=== PATIENT | male | born 1935 | race Two or more races ===

== ENCOUNTER 2021-01-02 11:47 | Day surgery (SDC) | payer OTHER ==
[~2021-01-02] VITALS: Ht 177.8 cm; Wt 92.1 kg
[~2021-01-02 11:47] MED LIST: AMLO5 PO; ASPI81CH PO; ATOR20 PO; B-122500 MC1 PO; CLOP75 PO; Depo-Testo100 MG/1 M IM; FISH OIL 1,0001 EAC1 PO; FISH1000 PO; FURO20; Furosemide20 MG PO; GLUCHON PO; GLUCOSAMINE-CH1 EA12; HYDR-86 PO; LEVSOD88 PO; LOSA50 PO; LOSHYD PO; MAGOXI400 PO; MELA3 PO; METO25ER PO; MULVITA PO; Multivitamin1 EAC1 PO; NIAC500 PO; Norco 7.5-3251 EACH PO; OXYACE7.5T; OXYACE7.5T PO; PROM25 PO; ROXICODONE5 MG PO; STOOL SOFTENER100 MG PO; TRAM50 PO; UBID100 PO; VITAMIN D5000 UNIT PO; Vitamin B-121000 MCG PO
--- NOTE | 2021-01-02 13:09 | NUR ---
Ambulatory in Day Surgery History, Chart, Medications and Allergies reviewed before start of procedure.Patient confirms NPO status and agrees with scheduled surgery. Pre-Op teaching done. Pt verbalizes understanding. Lungs clear T/O to Auscultation.
[2021-01-03 05:11] LABS: BASOPHILS ABSOLUTE AUTO 0.03 K/mm3 (0.00-0.23); BASOPHILS PERCENT AUTO 0 % (0-2); EOSINOPHILS ABSOLUTE AUTO 0.28 K/mm3 (0.00-0.68); EOSINOPHILS PERCENT AUTO 3 % (0-6); Hematocrit 43.6 % (37.0-53.0); Hemoglobin 14.6 g/dL (13.5-17.5); IMMATURE GRAN ABSOLUTE AUTO 0.04 K/mm3 (0.00-0.10); IMMATURE GRAN PERCENT AUTO 0 % (0-1); LYMPHOCYTES ABSOLUTE AUTO 1.92 K/mm3 (0.84-5.20); LYMPHOCYTES PERCENT AUTO 19 % (21-46); MONOCYTES PERCENT AUTO 11 % (4-13); Mean Corpuscular HGB 30.2 pg (26.0-34.0); Mean Corpuscular HGB Conc 33.5 g/dL (31.5-36.5); Mean Corpuscular Volume 90 fL (80-100); Mean Platelet Volume 10.5 fL (9.1-12.4); NEUTROPHILS ABSOLUTE AUTO 6.58 K/mm3 (1.96-9.15); NEUTROPHILS PERCENT AUTO 66 % (41-73); Platelet Count 167 K/mm3 (150-400); RDW Coefficient Variation 14.3 % (11.7-14.2); RDW Standard Deviation 47.5 fL (35.1-46.3); Red Blood Cell Count 4.84 M/mm3 (4.30-5.90); White Blood Cell Count 9.95 K/mm3 (4.00-11.30)
[2021-01-03 05:34] LABS: Anion Gap 4 mmol/L (6-16); Blood Urea Nitrogen 15 mg/dL (8-24); Bun/Creatinine Ratio 12.4 (12.0-20.0); CO2, Blood 28 mmol/L (21-32); Calcium, Blood 8.1 mg/dL (8.5-10.1); Chloride, Blood 104 mmol/L (98-108); Creatinine, Blood 1.21 mg/dL (0.60-1.20); Glomerular Filtration Rate >60 (60-); Glucose, Blood 92 mg/dL (70-99); Sodium, Blood 136 mmol/L (136-145)
--- NOTE | 2021-01-03 05:51 | NUR ---
SHIFT SUMMARY LYING IN SEMI FOWLERS WITH EYES CLOSED. NO SIGNIFICANT CHANGES NOTED THIS SHIFT. PT AMBULATED TO BATHROOM WITH 1 PERSON ASSIST USING FWW/GB. RLE WITH GOOD DISTAL PULSES AND CAP REFILL. POLAR KARINA, CATA'S, AND SCD'S IN PLACE. DENIES PAIN, DISCOMFORT, OR FURTHER NEEDS AT THIS TIME. SAFETY MEASURES IN PLACE. WILL CONTINUE TO MONITOR AND GIVE HAND OFF TO ONCOMING SHIFT USING SBAR DURING BEDSIDE REPORT.
[2021-01-03] MEDS ORDERED: PROM25 PO (14:32)
[2021-01-03] MEDS ORDERED: OXYC5 PO (14:32)
[2021-01-03] MEDS ORDERED: SULTRIDS PO (14:33)
--- NOTE | 2021-01-03 15:07 | NUR ---
DISCHARGE PT DISCHARGED HOME WITH HIS DAUGHTER AT APPROXIMATELY 1450. PT AND HIS DAUGHTER PROVIDED WITH WRITTEN AND VERBAL DISCHARGE INSTRUCTIONS, THEY REPORTED UNDERSTANDING. PT WAS ABLE TO VOID BEFORE DISCHARGE. HE REPORTED ADQUEATE VOID WITH STRONG URINE STREAM. PVR WAS 79ML. PT EDUCATED TO MONITOR FOR BLADDER DISCOMFORT/INABILITY TO VOID. PT EDUCATED TO NOTIFY MD IF FURTHER ISSUES VOIDING. PT PROVIDED WITH DRESSINGS. PT ESCORTED OUT IN W/C. VSS PRIOR TO DISCHARGE.
[2021-01-09] MEDS ORDERED: Keflex500 MG PO (17:52)
[2021-01-09] MEDS ORDERED: Vibramycin100 MG PO (17:52)
== END 2021-01-03 14:54 | disposition home or self-care (01) ==
LOC: SURS 11:47 → ORSCMMR 11:47 → SURS 17:15 → ORSCMMR 01-03 14:54
PROVIDERS: Orthopaedic Surgery
PROC: 8E0YXBZ Computer Assisted Procedure of Lower Extremity (ICD-10-PCS; principal; 2021-01-02 14:00)
PROC: 0SRC0J9 Replacement of Right Knee Joint with Synthetic Substitute, Cemented, Open Approach (ICD-10-PCS; principal; 2021-01-02 14:00)
DX: M17.11 Unilateral primary osteoarthritis, right knee (principal); I10 Essential (primary) hypertension; E78.5 Hyperlipidemia, unspecified; I25.10 Atherosclerotic heart disease of native coronary artery without angina pectoris; E03.9 Hypothyroidism, unspecified; Z79.899 Other long term (current) drug therapy; Z79.82 Long term (current) use of aspirin
CPT/HCPCS: 36415; 73560-RT; 80048; 83735; 85025; 97110; 97116; 97162; 97530; A9270; C1713; C1776; J0171; J0690; J0735; J1885; J2370; J2704; J2795; J3010; J3370; J7120

== ENCOUNTER 2021-01-09 13:32 | Emergency (ER) | payer OTHER ==
[~2021-01-09] VITALS: Ht 177.8 cm; Wt 90.7 kg
== END 2021-01-09 18:35 | disposition home or self-care (01) ==
LOC: ER 13:32
DX: L03.115 Cellulitis of right lower limb (principal); L76.82 Other postprocedural complications of skin and subcutaneous tissue; Z79.899 Other long term (current) drug therapy; Z87.19 Personal history of other diseases of the digestive system; Z87.891 Personal history of nicotine dependence
CPT/HCPCS: 20610; 36415; 73562-RT; 80053; 82272; 83605; 83615; 84157; 85025; 85651; 86140; 86850; 86900; 86901; 87040; 87070; 87075; 87205; 89051; 89060; 93005; 93010; 99284-25; A9270; J0692

== ENCOUNTER 2021-01-10 09:11 | Inpatient (IN) | payer OTHER ==
[~2021-01-10] VITALS: Ht 177.8 cm; Wt 90.5 kg
[~2021-01-10 09:11] MED LIST changes: +Keflex500 MG PO; +OXYC5 PO; +SULTRIDS PO; +Vibramycin100 MG PO
--- NOTE | 2021-01-10 10:05 | NUR ---
INTO SDS ADMISSION STARTED TO UNIT
[2021-01-10 13:07] LABS: BODY FLUID RBC 1.164 M/mm3 (0-0); RBC Count, Synovial Fluid 1164000 /mm3 (0-0)
[2021-01-10 13:32] LABS: WBC Count, Synovial Fluid 8472 /mm3 (0-180)
[2021-01-10 13:41] LABS: BODY FLUID RBC 0.002 M/mm3 (0-0); WBC Count, Synovial Fluid 521 /mm3 (0-180)
[2021-01-10 13:45] LABS: BODY FLUID RBC 1.167 M/mm3 (0-0); RBC Count, Synovial Fluid 1167000 /mm3 (0-0)
[2021-01-10 14:00] LABS: WBC Count, Synovial Fluid 7770 /mm3 (0-180)
[2021-01-10 14:08] LABS: Appearance, Synovial Fluid Bloody (Clear); Color, Synovial Fluid Red (None-P Yel); Lymphs, Synovial Fluid 4 % (0-15); Monocytes/Macrophages, Synovia 6 % (0-65); Neutrophils, Synovial Fluid 90 % (0-24)
[2021-01-10 14:30] LABS: Appearance, Synovial Fluid Bloody (Clear); Color, Synovial Fluid Red (None-P Yel); Eos, Synovial Fluid 1 % (0-2); Lymphs, Synovial Fluid 12 % (0-15); Monocytes/Macrophages, Synovia 14 % (0-65); Neutrophils, Synovial Fluid 73 % (0-24)
[2021-01-10 14:32] LABS: Appearance, Synovial Fluid Bloody (Clear); Color, Synovial Fluid Red (None-P Yel); Lymphs, Synovial Fluid 1 % (0-15); Monocytes/Macrophages, Synovia 5 % (0-65); Neutrophils, Synovial Fluid 94 % (0-24)
--- NOTE | 2021-01-10 18:42 | NUR ---
SHIFT SUMMARY PATIENT POST OP TODAY FOR IRRIGATION AND DEBRIDEMENT OF THE R KNEE. A/O X4 AND GETS UP WITH A 1 ASSIST WITH A FWW/GB. PT IS TOLERATING PO INTAKE AND URINATING. MEDICATED FOR PAIN X3 THIS SHIFT. VSS.
--- NOTE | 2021-01-10 19:13 | NUR ---
RECEIVED REPORT AND ASSUMED CARE. PT LYING QUIETLY IN RECLINER WITH EYES CLOSED AND EVEN, UNLABORED RESPIRATIONS.
--- NOTE | 2021-01-10 20:37 | NUR ---
DURING ASSESSMENT PT REPORTED THAT HE HAD NOT PRODUCED URINE ALL DAY. HE ATTEMPTED TO VOID AND WAS UNABLE. BLADDER SCAN PER ORDER REVEALED 769. ON-CALL PHYSICIAN CONTACTED AND ORDER RECEIVED TO STRAIGHT CATH AND REPEAT IN 4 HOURS.
--- NOTE | 2021-01-11 04:15 | NUR ---
SHIFT SUMMARY: DANELLE IS A&OX4, ONE PERSON ASSIST W/ GAIT BELT AND FWW. VSS, NO ACUTE EVENTS OVERNIGHT. HE REPORTS MINIMAL PAIN CONTROL WITH THE DILAUDID, TORADOL, AND 5 MG OF OXYCODONE. HE IS TOLERATING PO INTAKE WELL, USES THE CALL LIGHT APPROPRIATELY, AND HAS URINATED INDEPENDENTLY ONCE. HE WAS ENCOURAGED TO ATTEMPT URINATION AGAIN AND EDUCATED ON BLADDER SCANNING. JANA WRAP TO R KNEE C/D&I, HEMOVAC PATENT DRAINING SEROUS FLUID. IV PATENT. HE IS LYING IN BED WITH HIS CALL LIGHT IN REACH. WILL REPORT TO DAY SHIFT RN.
[2021-01-11 04:31] LABS: BASOPHILS ABSOLUTE AUTO 0.05 K/mm3 (0.00-0.23); BASOPHILS PERCENT AUTO 1 % (0-2); EOSINOPHILS ABSOLUTE AUTO 0.41 K/mm3 (0.00-0.68); EOSINOPHILS PERCENT AUTO 5 % (0-6); Hematocrit 34.7 % (37.0-53.0); Hemoglobin 11.2 g/dL (13.5-17.5); IMMATURE GRAN ABSOLUTE AUTO 0.08 K/mm3 (0.00-0.10); IMMATURE GRAN PERCENT AUTO 1 % (0-1); LYMPHOCYTES ABSOLUTE AUTO 1.29 K/mm3 (0.84-5.20); LYMPHOCYTES PERCENT AUTO 15 % (21-46); MONOCYTES ABSOLUTE AUTO 1.02 K/mm3 (0.16-1.47); MONOCYTES PERCENT AUTO 12 % (4-13); Mean Corpuscular HGB 29.9 pg (26.0-34.0); Mean Corpuscular HGB Conc 32.3 g/dL (31.5-36.5); Mean Corpuscular Volume 93 fL (80-100); Mean Platelet Volume 10.8 fL (9.1-12.4); NEUTROPHILS ABSOLUTE AUTO 5.53 K/mm3 (1.96-9.15); NEUTROPHILS PERCENT AUTO 66 % (41-73); Platelet Count 279 K/mm3 (150-400); RDW Coefficient Variation 14.3 % (11.7-14.2); RDW Standard Deviation 48.7 fL (35.1-46.3); Red Blood Cell Count 3.75 M/mm3 (4.30-5.90); White Blood Cell Count 8.38 K/mm3 (4.00-11.30)
[2021-01-11 04:57] LABS: Bun/Creatinine Ratio 17.5 (12.0-20.0); C-REACTIVE PROTEIN, EXT RANGE 10.7 mg/dL (0.000-0.300); Creatinine, Blood 1.37 mg/dL (0.60-1.20); Magnesium, Blood 2.2 mg/dL (1.6-2.4); Potassium, Blood 4.1 mmol/L (3.5-5.5)
--- NOTE | 2021-01-11 17:54 | NUR ---
SHIFT SUMMARY PT SPENT MOST OF THE DAY UP IN HIS RECLINER. PT AMBULATED THE HALLWAY WITH PHYSICAL THERAPY TODAY & AMBULATED TO THE BATHROOM & BACK 2 OTHER TIMES TODAY. PT AGREEABLE FOR ANOTHER WALK AFTER DINNER TODAY. SEE EMAR FOR PAIN CO FOUNDER AND CTO. ICE PACKS ALSO UTILIZED FOR PAIN RELIEF OF THE R KNEE. DR. GU CHANGED PTS DRESSING THIS AM. PLAN TO PLACE PICC FOR OUTPT ABX SOMETIME OVER THE WEEKEND. NO ACUTE CHANGES IN ASSESSMENT AT THIS TIME. VS REVIEWED. PT UP IN RECLINER, EATING DINNER.
--- NOTE | 2021-01-12 06:42 | NUR ---
SUMMARY PT AMBULATES WITH WALKER,GAIT BELT AND SBA. VOIDS AND REPORTS PAIN MEDS EFFECTIVE.DISCHARGE PENDING,BUT DAY RN REPORTED PT IS UNABLE TO RECEIVE ANTIBIOTICS AT HIS HOME UNTIL THURSDAY.
[2021-01-12 11:28] LABS: Creatinine, Blood 1.08 mg/dL (0.60-1.20); Vancomycin, Trough 10.3 ug/mL (5.0-10.0)
--- NOTE | 2021-01-12 17:08 | NUR ---
SUMMARY NO ACUTE CHANGES T/O SHIFT. PT AMBULATES TO RESTROOM. SAT UP IN CHAIR MOST OF SHIFT. DR HARRY DC'Kevin HEMOVAC THIS SHIFT AND CHANGED DRESSING TO RLE. MEDICATED PT TWICE DURING SHIFT PER ORDERS FOR PAIN. CALL LIGHT IN REACH.
--- NOTE | 2021-01-13 05:32 | NUR ---
SHIFT SUMMARY LYING IN SEMI FOWLERS WITH EYES CLOSED. PT HAS SLEPT OFF AND ON THIS SHIFT. MEDICATED WITH PRN PAIN MEDS AVAILABLE. JANA WRAP TO KNEE REMAINS C/D/I. NO SIGNIFICANT CHANGED NOTED THIS SHIFT. DENIES PAIN, DISCOMFORT, OR FURTHER NEEDS AT THIS TIME. SAFETY MEASURES IN PLACE. WILL CONTINUE TO MONITOR FOR CHANGES/NEEDS AND ADDRESS THEM THEY ARISE, AND WILL GIVE HAND OFF TO ONCOMING SHIFT USING SBAR DURING BEDSIDE REPORT.
[2021-01-13 11:23] LABS: Vancomycin, Trough 11.3 ug/mL (5.0-10.0)
--- NOTE | 2021-01-13 18:15 | NUR ---
SUMMARY NO ACUTE CHANGES T/O SHIFT. PT AMBULATED IN LOBO W/RN. SAT UP IN CHAIR MOST OF SHIFT. USES CALL LIGHT APPROPRIATELY.
--- NOTE | 2021-01-14 06:35 | NUR ---
SHIFT SUMMARY LYING IN SEMI FOWLERS WITH EYES OPEN, HAS RESTED OFF AND ON THIS SHIFT. MEDICATED WITH PRN MEDS PER HIS REQUEST. JANA WRAP TO KNEE REMAINS C/D/I. NO SIGNIFICANT CHANGED NOTED THIS SHIFT. DENIES PAIN, DISCOMFORT, OR FURTHER NEEDS AT THIS TIME. SAFETY MEASURES IN PLACE. WILL CONTINUE TO MONITOR FOR CHANGES/NEEDS AND ADDRESS THEM THEY ARISE, AND WILL GIVE HAND OFF TO ONCOMING SHIFT USING SBAR DURING BEDSIDE REPORT.
--- NOTE | 2021-01-14 18:28 | NUR ---
SHIFT SUMMARY A&OX4, VSS, POD4 I&D/POD11 TKA, DRESSING CHANGED TODAY-AQUACEL CDI. PAIN MANAGED WITH TORADOL. TRUDI PO, DENIES N&V. AMB W/FWW & GB. VOIDING WELL, MULT BM'S. UP TO CHAIR T/O SHIFT. PICC PLACED TODAY. PLAN FOR DC HOME TOMORROW; ABX TO BE DELIVERED APPROX NOON. WILL REPORT TO ONCOMING NOC RN.
--- NOTE | 2021-01-14 19:56 | NUR ---
RECEIVED REPORT AND ASSUMED CARE OF PT. PT LYING IN BED, AWAKE AND ALERT. DENIES ANY NEEDS AT THIS TIME.
--- NOTE | 2021-01-15 05:00 | NUR ---
SHIFT SUMMARY: DANELLE IS A&OX4. VSS, NO ACUTE EVENTS OVERNIGHT, ORA. HE REPORTS FEELING VERY READY TO GO HOME. AQUACELL TO R KNEE C/D&I. HE HAS DENIED THE NEED FOR PAIN MEDICATION THIS SHIFT. HE IS A ONE PERSON ASSIST WITH THE WALKER AND GAIT BELT. PICC TO KIKA PATENT. HE IS USING THE URINAL OR AMBULATIMG TO THE BATHROOM WIHTOUT DIFFICULTY. HE IS LYING IN BED WITH THE CALL LIGH IN REACH. WILL REPORT TO SLOAN HIFT HANK.
[2021-01-15 11:55] LABS: Vancomycin, Trough 13.9 ug/mL (5.0-10.0)
--- NOTE | 2021-01-15 15:09 | NUR ---
DISCHARGE SUMMARY PT A&OX4, VSS, VOIDING + MULT BM'S, TRUDI PO, PAIN MANAGED WITH TYLENOL, AMBULATING WITH FWW & GB, UP TO CHAIR T/O SHIFT. LEFT FLOOR VIA WC WITH RN TO GO HOME WITH DAUGHTER & JUANCHO, WITH ALL PERSONAL POSSESSIONS INCLUDING DRESSING CHANGE SUPPLIES AND PICC LINE MGMT SUPPLIES.DC INSTRUCTIONS PROVIDED, PT AND DAUGHTER REP UNDERSTANDING THOSE INSTRUCTIONS INCLUDING FU WITH SURGEON IN 2 WKS, HOW TO DO DRESSING CHANGE, AND PICC LINE MGMT, RN TO MEET PT AT HIS HOME THURSDAY.
== END 2021-01-15 14:56 | disposition home or self-care (01) | DRG 489 ==
LOC: SURS 09:11 → ORD 09:11 → ORSCMMR 09:12 → ORD 10:00 → SURS 11:21 → ORSCMMR 13:46 → SURS 13:46 → ORD 13:47 → SURS 13:47 → ORD 01-13 22:36 → SURS 01-13 22:36
PROVIDERS: Pharmacist; ADMIT Orthopaedic Surgery
PROC: 0SUV09Z Supplement Right Knee Joint, Tibial Surface with Liner, Open Approach (ICD-10-PCS; 2021-01-10)
PROC: 0SPC09Z Removal of Liner from Right Knee Joint, Open Approach (ICD-10-PCS; principal; 2021-01-10 10:30)
PROC: 02HV33Z Insertion of Infusion Device into Superior Vena Cava, Percutaneous Approach (ICD-10-PCS; 2021-01-14)
PROC: 4A02X4A Measurement of Cardiac Electrical Activity, Guidance, External Approach (ICD-10-PCS; 2021-01-14)
DX: T84.84XA Pain due to internal orthopedic prosthetic devices, implants and grafts, initial encounter (principal); L53.9 Erythematous condition, unspecified; M25.461 Effusion, right knee; I10 Essential (primary) hypertension; E03.9 Hypothyroidism, unspecified; E78.5 Hyperlipidemia, unspecified; I25.10 Atherosclerotic heart disease of native coronary artery without angina pectoris; M47.9 Spondylosis, unspecified; M19.90 Unspecified osteoarthritis, unspecified site; E29.1 Testicular hypofunction; Z96.653 Presence of artificial knee joint, bilateral; Z95.5 Presence of coronary angioplasty implant and graft; Z87.891 Personal history of nicotine dependence; Z86.14 Personal history of Methicillin resistant Staphylococcus aureus infection; Z79.899 Other long term (current) drug therapy; Z79.02 Long term (current) use of antithrombotics/antiplatelets; Z79.82 Long term (current) use of aspirin
CPT/HCPCS: 36415; 36569; 80048; 80202; 82565; 83735; 85025; 85651; 86140; 89051; 97110; 97110-CQ; 97116; 97116-CQ; 97162; 97530-CQ; A9270; A9270-GY; C1751; C1776; J0171; J0690; J0696; J0735; J1170; J1885; J2370; J2405; J2704; J2795; J3370; J7050; J7120

== ENCOUNTER → 2021-01-22 | Outpatient (CLI) | payer OTHER ==
[2021-01-22 16:27] LABS: Hematocrit 42.7 % (37.0-53.0); Hemoglobin 13.3 g/dL (13.5-17.5); Mean Corpuscular HGB 29.8 pg (26.0-34.0); Mean Corpuscular HGB Conc 31.1 g/dL (31.5-36.5); Mean Corpuscular Volume 96 fL (80-100); Platelet Count 420 K/mm3 (150-400); RDW Coefficient Variation 14.7 % (11.7-14.2); RDW Standard Deviation 51.9 fL (35.1-46.3); Red Blood Cell Count 4.46 M/mm3 (4.30-5.90); White Blood Cell Count 10.26 K/mm3 (4.00-11.30)
[2021-01-22 16:54] LABS: Alanine Aminotransfer (ALT/SGP 56 U/L (12-78); Albumin, Blood 3.7 g/dL (3.4-5.0); Albumin/Globulin Ratio 0.9 (0.8-1.8); Alk Phos 99 U/L (50-136); Anion Gap 9 mmol/L (6-16); Aspartate Aminotrans (AST/SGOT 37 U/L (12-37); Bilirubin, Total 0.5 mg/dL (0.1-1.0); Blood Urea Nitrogen 27 mg/dL (8-24); Bun/Creatinine Ratio 19.1 (12.0-20.0); CO2, Blood 25 mmol/L (21-32); Calcium, Blood 9.1 mg/dL (8.5-10.1); Chloride, Blood 99 mmol/L (98-108); Creatinine, Blood 1.41 mg/dL (0.60-1.20); Globulin, Blood 4.3 g/dL (2.2-4.0); Glomerular Filtration Rate 51 (60-); Glucose, Blood 36 mg/dL (70-99); Potassium, Blood 5.2 mmol/L (3.5-5.5); Sodium, Blood 133 mmol/L (136-145); Vancomycin, Trough 12.5 ug/mL (5.0-10.0)
== END | disposition home or self-care (01) ==
LOC: LAB SHORT 10:45
PROVIDERS: Orthopaedic Surgery
DX: T84.53XA Infection and inflammatory reaction due to internal right knee prosthesis, initial encounter (principal); L03.115 Cellulitis of right lower limb; I10 Essential (primary) hypertension; I25.10 Atherosclerotic heart disease of native coronary artery without angina pectoris
CPT/HCPCS: 80053; 80202; 85027; 85651

== ENCOUNTER → 2021-02-04 | Outpatient (CLI) | payer OTHER ==
[2021-02-04 15:41] LABS: Hematocrit 40.6 % (37.0-53.0); Mean Corpuscular HGB 30.5 pg (26.0-34.0); Mean Corpuscular Volume 95 fL (80-100); Mean Platelet Volume 11.7 fL (9.1-12.4); Platelet Count 162 K/mm3 (150-400); RDW Standard Deviation 52.6 fL (35.1-46.3); Red Blood Cell Count 4.26 M/mm3 (4.30-5.90); White Blood Cell Count 8.82 K/mm3 (4.00-11.30)
[2021-02-04 15:58] LABS: Albumin, Blood 3.4 g/dL (3.4-5.0); Calcium, Blood 8.6 mg/dL (8.5-10.1); Chloride, Blood 102 mmol/L (98-108); Sodium, Blood 137 mmol/L (136-145)
[2021-02-04 16:02] LABS: Alanine Aminotransfer (ALT/SGP 64 U/L (12-78); Albumin/Globulin Ratio 0.8 (0.8-1.8); Alk Phos 90 U/L (50-136); Anion Gap 8 mmol/L (6-16); Aspartate Aminotrans (AST/SGOT 43 U/L (12-37); Bilirubin, Total 0.4 mg/dL (0.1-1.0); Blood Urea Nitrogen 15 mg/dL (8-24); Bun/Creatinine Ratio 14.2 (12.0-20.0); CO2, Blood 27 mmol/L (21-32); Creatinine, Blood 1.06 mg/dL (0.60-1.20); Glomerular Filtration Rate >60 (60-); Glucose, Blood 85 mg/dL (70-99); Total Protein, Blood 7.4 g/dL (6.4-8.2); Vancomycin, Trough 11.6 ug/mL (5.0-10.0)
== END | disposition home or self-care (01) ==
LOC: LAB SHORT 13:14 → PLD 13:14
PROVIDERS: Family Medicine
DX: T84.53XA Infection and inflammatory reaction due to internal right knee prosthesis, initial encounter (principal); L03.115 Cellulitis of right lower limb; E78.5 Hyperlipidemia, unspecified; I10 Essential (primary) hypertension; I25.10 Atherosclerotic heart disease of native coronary artery without angina pectoris
CPT/HCPCS: 80053; 80202; 85027; 85651

== ENCOUNTER → 2022-01-02 | Outpatient (CLI) | payer OTHER | END | disposition home or self-care (01) | LOC: LAB 11:15 → LAB SHORT 11:15 → PLD 11:15 | DX: C44.311 Basal cell carcinoma of skin of nose (principal) | CPT/HCPCS: 88305 ==

== ENCOUNTER → 2023-05-19 | Outpatient (CLI) | payer OTHER | LOC: PLD 11:46 → LAB SHORT 11:46 | DX: C44.319 Basal cell carcinoma of skin of other parts of face (principal); C44.41 Basal cell carcinoma of skin of scalp and neck; C44.712 Basal cell carcinoma of skin of right lower limb, including hip | CPT/HCPCS: 88305 ==